=== PATIENT | male | born 1980 | race Caucasian/White ===

== ENCOUNTER 2024-07-23 20:49 | Emergency (ER) | payer SELFPAY ==
[2024-07-23] MEDS: Lidocaine 1% 10 ML MDV INJECT ONE (23:26)
[2024-07-24] MEDS: Acetaminophen/oxyCODONE 325-5 MG Tab PO ONE ×2 (00:43→00:44)
[2024-07-24] MEDS: Amoxicillin/Clavulanate K 500-125 MG Tab PO ONE (00:43)
== END 2024-07-24 00:45 | disposition home or self-care (01) ==
LOC: JD.ED 20:49
DX: S61.217A Laceration without foreign body of left little finger without damage to nail, initial encounter (principal); F17.210 Nicotine dependence, cigarettes, uncomplicated; X58.XXXA Exposure to other specified factors, initial encounter
CPT/HCPCS: 12001; 99282; 99283; A9270-GY; J3490